=== PATIENT | female | born 1940 | race Caucasian/White ===

== ENCOUNTER → 2017-02-23 | Day surgery (SDC) | payer MEDICARE, BC ==
[~2017-02-23] MED LIST: FLUT12AE IH; IV RINGERS,LACTATED 1000ML 1,000 ML IV SCH; LEVO125T PO; LIDOCAINE 1% PF 2 ML VIAL. ID PRN; LIDOCAINE 2% PF Vial for OR 5 ML VIAL. ONE; MIDAZOLAM HCL/PF 2 MG/2 ML VIAL. IV PRN; PROPOFOL 40 ML IV ONE; fentaNYL PF VIAL 100 MCG/2 ML VIAL IV PRN
[2017-02-23 09:09] VITALS: BP 103/62
--- NOTE | 2017-02-23 10:35 | HP ---
ADMIT DATE: 02/23/2017 REFERRING PHYSICIAN: Dr. Rosangela Ray HISTORY OF PRESENT ILLNESS: A 76-year-old female with past medical history significant for hypothyroidism, celiac disease, lung cancer and peptic ulcer disease. Seen with an episode of diarrhea and abdominal pain after an accidental gluten ingestion. The diarrhea has since slowed, and she has been maintained on a strict gluten-free liquid diet. In the interim, the diarrhea has also resolved. Continued discomfort and abnormal CAT scan with possible filling defect in the colon, reevaluation is recommended and she is willing to proceed. PAST MEDICAL HISTORY: Celiac disease, lung cancer, hypothyroidism and peptic ulcer disease. ALLERGIES: INCLUDE PENICILLIN, TYLENOL, FOSAMAX, AZITHROMYCIN, GLUTEN, OXYCODONE, SULFAMETHOXAZOLE, TRAMADOL AND TRIMETHOPRIM. FAMILY HISTORY: Significant for ____ cancer with grandparents, colon polyps with her father, CVA with her father and myocardial infarction with her maternal grandparents. SURGICAL HISTORY: Partial lobectomy, also surgery with cauterization, KEHINDE-BSO, tracheostomy and multiple laryngeal papillomas. REVIEW OF SYSTEMS: Per records. PHYSICAL EXAMINATION: GENERAL: Reveals a thin female VITAL SIGNS: Temperature 97.8, pulse 97 and respiratory rate 20. HEENT: Normocephalic and atraumatic head. Pupils and extraocular muscles not tested. Sclerae anicteric. NECK: Supple. LUNGS: Clear. CARDIOVASCULAR: Reveals S1 and S2 without S3, S4 or appreciable murmur. ABDOMEN: Reveals soft abdomen. Normoactive bowel sounds, without appreciable hepatosplenomegaly with infraumbilical hysterectomy incision. EXTREMITIES: Reveals no cyanosis, clubbing or edema. IMPRESSION: 1. History of celiac disease with diarrhea and abdominal pain. We recommend EGD to assess recurrent ulcer, possible lymphoma development and as well as reassessment of duodenum mucosa for advancement of her celiac. 2. Diarrhea. We will recommend colonoscopy to assess for abnormal CAT scan. Risk and benefits were discussed. The patient is willing to proceed at this time. RYNE OLMOS MD DR: BLAKE/abraham JOB#: [id number] / [id number]
--- NOTE | 2017-02-24 14:34 | PATHOLOGY ---
PATHOLOGY REPORT * * * * * * * * FINAL DIAGNOSIS: A. Duodenum, "duodenum biopsy": - Mild chronic duodenitis with focal mild blunting of villous pattern with lamina propria chronic inflammation admixed with eosinophils. - History of gluten-sensitive enteropathy noted. - There is no evidence of atypia or malignancy. B. Colonic mucosa, "random colon biopsies": - Fragments of colonic mucosa with no diagnostic changes. - There is no evidence of acute cryptitis, granulomas or adenomatous change, changes of microscopic colitis or malignancy. (SHA:jasiel; 02/24/2017) REPORT ELECTRONICALLY SIGNED BY: Sheng Alaniz M.D. DATE/TIME: 02/24/2017 13:02 * * * * * * * * GROSS PATHOLOGY: A. Received in formalin labeled "Ace Mason, duodenal BX," are 7 segments of woodruff soft tissue measuring 2.4 x 1.3 x 0.4 cm in aggregate dimensions and ranging from 0.3 to 0.4 cm in maximum dimension. The specimen is submitted entirely in cassette A1. B. Received in formalin labeled "Ace Mason, random colon biopsies," and additionally labeled on the requisition as "BX," are 6 segments of woodruff soft tissue measuring 1.3 x 1.1 x 0.2 cm in aggregate dimensions and ranging from 0.2 to 0.2 cm in maximum dimension. The specimen is submitted entirely in cassette B1. (TSD; 02/23/2017) INITIAL CPT CODE(S): A; 64154 B; 48561 Professional services performed by [facility] [place] [address] Technical services performed by [facility] at [address] [place] [address] [address] [address]. SPECIMEN(S) RECEIVED: A.Duodenal biopsy B.Random colon biopsy CLINICAL HISTORY: History of gluten intolerance, diarrhea, abdominal pain, abnormal CT scan PATIENT: ACE MASON /AGE: 105/19/1940 (Age: 76) PATIENT #: [id number] ALT CASE #: SPECIMEN COLLECTION DATE: 02/23/2017 SPECIMEN RECEIVED DATE: 02/23/2017 [facility] - [address] [place] [address] - PHONE: [phone] * * * END OF REPORT * * *
== END | disposition home or self-care (01) ==
LOC: ENDOS 06:57
PROVIDERS: ATTEND Internal Medicine Gastroenterology
DX: K64.0 First degree hemorrhoids (principal); K57.30 Diverticulosis of large intestine without perforation or abscess without bleeding; K29.50 Unspecified chronic gastritis without bleeding; K31.89 Other diseases of stomach and duodenum; Z98.890 Other specified postprocedural states; Z90.710 Acquired absence of both cervix and uterus; E03.9 Hypothyroidism, unspecified; Z86.39 Personal history of other endocrine, nutritional and metabolic disease; Z88.6 Allergy status to analgesic agent; Z88.1 Allergy status to other antibiotic agents; Z91.040 Latex allergy status; Z88.0 Allergy status to penicillin; Z88.8 Allergy status to other drugs, medicaments and biological substances; Z91.048 Other nonmedicinal substance allergy status
CPT/HCPCS: 43239; 45378; 88305; J2704; J2001